=== PATIENT | female | born 1950 | race Caucasian/White ===

== ENCOUNTER 2018-08-23 11:50 | Emergency (ER) | payer MEDICARE ==
[~2018-08-23] VITALS: Ht 167.6 cm; Wt 108.9 kg
[2018-08-23] MEDS ORDERED: ASPIRIN ADULT L81 M1 PO (12:00)
[2018-08-23] MEDS ORDERED: SYNTHROID,LEVO75 MCG PO (12:00)
[2018-08-23] MEDS ORDERED: VIBRAMYCIN100 MG PO (14:11)
== END 2018-08-23 14:16 | disposition home or self-care (01) ==
LOC: ED 11:50
DX: J40 Bronchitis, not specified as acute or chronic (principal); Z88.1 Allergy status to other antibiotic agents; Z79.899 Other long term (current) drug therapy; Z79.82 Long term (current) use of aspirin

== ENCOUNTER 2021-12-11 14:54 | Emergency (ER) | payer MEDICARE ==
[~2021-12-11 14:54] MED LIST: ASPIRIN ADULT L81 M1 PO; SYNTHROID,LEVO75 MCG PO; VIBRAMYCIN100 MG PO
== END 2021-12-11 18:02 | disposition home or self-care (01) ==
LOC: ED 14:54
DX: S01.21XA Laceration without foreign body of nose, initial encounter (principal); Z88.1 Allergy status to other antibiotic agents; Z79.899 Other long term (current) drug therapy; Z79.82 Long term (current) use of aspirin; Z98.890 Other specified postprocedural states; W18.39XA Other fall on same level, initial encounter; Y93.89 Activity, other specified; Y92.89 Other specified places as the place of occurrence of the external cause; Y99.8 Other external cause status